=== PATIENT | female | born 1995 | race Caucasian/White ===

== ENCOUNTER 2023-02-09 01:12 | Emergency (ER) | payer MEDICAID, SELFPAY ==
[2023-02-09 01:24] VITALS: BP 125/72; PULSE 75; RESP 18; TEMP 36.6; O2SAT 99; BMI 31.9
--- NOTE | 2023-02-09 02:01 | ED.GENADULT ---
HPI - General Adult General Chief complaint: Extremity Pain/Injury, Upper Stated complaint: blood clot in R arm Time Seen by Provider: 02/09/23 01:49 Source: patient Mode of arrival: ambulatory History of Present Illness HPI narrative: 27-year-old female 18 weeks with twins presents to the emergency department for evaluation of a lump in her right antecubital fossa. She noticed this earlier this evening. No shortness of breath, no trauma or injury. She has extensive tattoos in the area, none of which are recent. She has a family history of DVT in her mother and another relative. Patient herself has no prior history of DVT or PE. She has no difficulty moving the arm. No pain in the shoulder, deeper in the elbow, wrist or hand. No significant swelling noted. She does not recall a bug bite or any other injury. She points to a lesion in the lateral antecubital fossa area, very superficial as the area in question. Achy pain, worse with palpation. Has not tried taking Tylenol or any other measures to help with her pain. Denies prior history of similar lesions. Past medical history she reports is benign. Only home medication is sertraline, no allergies. Currently 18 weeks with twins. ROS is notable for the skin symptoms as described above, otherwise denies times 12 systems. Related Data Home Medications Medication Instructions Recorded Confirmed sertraline 100 mg tablet 100 mg PO Q24H 06/15/22 02/09/23 Allergies Allergy/AdvReac Type Severity Reaction Status Date / Time No Known Drug Allergies Allergy Verified 02/09/23 02:06 [facility] Medical History True knot in cord ?O69.2XX0 - Labor and delivery complicated by other cord entanglement, with compression, not applicable or unspecified (ICD-10) Nuchal cord affecting delivery ?O69.81X0 - Labor and delivery complicated by cord around neck, without compression, not applicable or unspecified (ICD-10) PCOS (polycystic ovarian syndrome) ?E28.2 - Polycystic ovarian syndrome (ICD-10) Positive GBS test ?B95.1 - Streptococcus, group B, as the cause of diseases classified elsewhere (ICD-10) Rh negative state in antepartum period ?O26.899 - Other specified related conditions, unspecified trimester (ICD-10) ?Z67.91 - Unspecified blood type, rh negative (ICD-10) Anxiety and depression ?F41.9 - Anxiety disorder, unspecified (ICD-10) ?F32.A - Depression, unspecified (ICD-10) ADD (attention deficit disorder) ?F98.8 - Other specified behavioral and emotional disorders with onset usually occurring in childhood and adolescence (ICD-10) Surgical History S/P section ?Z98.891 - History of uterine scar from previous surgery (ICD-10) Social History Smoking Status: Never smoker How often do you have a drink containing alcohol: never How often do you have six or more drinks on one occasion: Never AUDIT-C Alcohol total score: 0 Non-prescribed substance use: denies use Exam Const: Vital Signs, click to edit/add: Vital Signs - 24 hr 02/09/23 01:24 02/09/23 02:09 02/09/23 02:17 Temperature 98 F 98 F 98 F Pulse Rate [Pulse Oximeter] 75 75 75 Respiratory Rate 18 18 18 Blood Pressure [Ri ght Upper Arm] 125/72 113/74 113/74 Pulse Oximetry 99 99 Oxygen Delivery Me thod Room Air Room Air Documenting provider has reviewed patient's vital signs: yes Common normals: no apparent distress General appearance: cooperative, comfortable and well kempt HENMT: Common normals: normocephalic and head/scalp atraumatic Head and scalp: normocephalic and atraumatic Mouth: oral and palatal mucosa normal Eye: Common normals: conjunctivae normal General eye: normal appearance of both eyes Conjunctiva: conjunctiva(e) normal Resp: Common normals: normal respiratory effort, no use of accessory muscles and clear to auscultation bilaterally Effort & inspection: able to speak in complete sentences Auscultation: clear to auscultation bilaterally Cardio: Common normals: regular rate, regular rhythm, S1 normal heart sound, S2 normal heart sound and no murmurs Rate: regular rate Rhythm: regular rhythm Heart sounds: S1 normal and S2 normal Extremity: Other: No significant swelling in shoulder, right elbow, right wrist or hand. Normal strength in biceps, triceps and forearm. Venous anatomy palpated with absolutely no tenderness. There is no swelling. There is a 6 mm superficial lesion contained to the dermis and epidermis only. Has minimal surrounding redness, slightly tender to the touch but no pustule or fluctuant areas. This does not communicate with any deeper structures and is most likely consistent with a mosquito bite. Interpretation is a bit skewed as she has extensive black tattooing over 80% of the arm surface, including the area in question. None of the tattoo areas are fresh. Extensive further palpation shows no tenderness along the veins, no palpable cords. Psych: Appearance: well kempt Activity/motor behavior: appropriate eye contact Insight: insight good Judgement: judgment good Course Course Hospital Course: Superficial skin lesion, incredibly low suspicion for superficial or deep venous thrombosis. Counseled patient on my findings but offered to do a confirmatory venous Doppler ultrasound. I let patient know I would need to call the tech in from home as it is the middle of the night and it would take approximately 3 hours to get our results. She is very reassured by exam and would prefer to be discharged with watchful waiting. This is certainly reasonable. Counseled patient on the signs and symptoms of typical superficial or venous deep vein thrombosis and encouraged follow-up if she has persistent concerns. This certainly could be ordered outpatient if she has continuing issues. Okay to use Tylenol, warm compresses. Discussed signs and symptoms of infection, she verbalizes understanding and agreement. Vital Signs Vital signs: Initial Vital Signs Temperature 98 F 02/09/23 01:24 Temperature Source Temporal Artery Scan 02/09/23 01:24 Pulse Rate 75 02/09/23 01:24 Respiratory Rate 18 02/09/23 01:24 Blood Pressure 125/72 02/09/23 01:24 Blood Pressure Mean 89 02/09/23 01:24 Blood Pressure Position Supine 02/09/23 01:24 Pulse Oximetry 99 02/09/23 01:24 Oxygen Delivery Method Room Air 02/09/23 01:24 Vital Signs Temperature 98 F 02/09/23 01:24 Pulse Rate 75 02/09/23 01:24 Respiratory Rate 18 02/09/23 01:24 Blood Pressure 125/72 02/09/23 01:24 Pulse Oximetry 99 02/09/23 01:24 Oxygen Delivery Method Room Air 02/09/23 01:24 Temperature 98 F 02/09/23 02:17 Pulse Rate 75 02/09/23 02:17 Respiratory Rate 18 02/09/23 02:17 Blood Pressure 113/74 02/09/23 02:17 Pulse Oximetry 99 02/09/23 02:09 Oxygen Delivery Method Room Air 02/09/23 02:09 Discharge Plan Discharge Clinical Impression: Insect bite Patient Disposition: Home, Self-Care Condition: Stable Additional Instructions: As we discussed, I do not see any signs of a blood clot or phlebitis which is inflammation of the vein today. The bump that you have in question appears confined to the skin and was most likely from an insect. There are no signs of a palpable abnormality in the vein, no swelling, no surrounding inflammation. This is all very reassuring. This certainly does not seem to connect to the deeper veins system or even the superficial vein system in any way. I offered ultrasound, but do not think it is particularly necessary. For now, you agree with this assessment. If you start having significant swelling, increased pain, difficulty using the arm, surrounding redness, fevers, please seek medical care. For now, it is okay to use Tylenol, warm compresses as needed. Follow-up with your OB or primary care provider if symptoms fail to improve in a few days. Activity Level: No Restrictions Discharge Diet: Regular Prescriptions: No Action sertraline 100 mg tablet 100 mg PO Q24H Patient Comments: TAKE 1 TABLET BY MOUTH EVERY DAY Follow Up/Referrals: Provider,Not a Local [Primary Care Provider] - Stand Alone Forms: [facility] Info Instructions
[2023-02-09 02:09] VITALS: BP 113/74; PULSE 75; RESP 18; TEMP 36.6; O2SAT 99
[2023-02-09 02:17] VITALS: BP 113/74; PULSE 75; RESP 18; TEMP 36.6
== END 2023-02-09 02:17 | disposition home or self-care (01) ==
LOC: ED 02:16
PROVIDERS: Emergency Provider Family Medicine
DX: S40.861A Insect bite (nonvenomous) of right upper arm, initial encounter (principal)
CPT/HCPCS: 99282; 99283